=== PATIENT | male | born 1985 | race Caucasian/White ===

== ENCOUNTER 2021-02-07 22:35 | Emergency (ER) | payer OTHER, SELFPAY ==
--- NOTE | ~2021-02-07 | XR_ITS ---
XR foot LT min 3V DATE: 02/07/2021 22:56 INDICATION: Patient fell on the whole wall running. Pain in first metatarsal area TECHNIQUE: 4 views COMPARISON: None FINDINGS: No fracture or dislocation, periosteal reaction or bone destruction. Joint spaces are prese rved. No erosive change. IMPRESSION: Negative Reviewed, dictated and finalized at location A. IMPRESSION: Negative
[2021-02-07 22:37] VITALS: BP 159/97; PULSE 102; RESP 17; TEMP 36.2; O2SAT 97
== END 2021-02-08 00:34 | disposition left against medical advice (07) ==
PROVIDERS: Emergency Provider Emergency Medicine
DX: S99.922A Unspecified injury of left foot, initial encounter (principal)
CPT/HCPCS: 73630; 99199

== ENCOUNTER 2025-05-17 11:37 | Outpatient (CLI) | payer OTHER, SELFPAY ==
--- OUTSIDE RECORDS SUMMARY | 2025-05-17 11:41 | XMS_ITS | Clinical Summary ---
Author Organization [facility] Address [address] [place] [address] Phone Care Team Providers Care Boating Safety Officer Name Role Phone Fabien Miguel MD Primary Care Provider + [phone] Allergies Active Allergy Reactions Criticality Noted Date Comments Yxydkmb-Wilxlp-Tvcxb Pertussis Unknown 03/30 Medications methylPREDNISol one (MEDROL DOSPACK) 4 MG Tablet Therapy Pack See product package insert for dosing schedule 21 Tab 0 03/30/2016 Active naproxen (NAPROSYN) 500 MG Tablet Take 1 Tab by mouth 2 times daily as needed for Pain. 20 Tab 0 03/30/2016 Active Social History Tobacco Use Types Packs/Day Years Used Date Smoking Tobacco: Never Alcohol Use Standard Drinks/Week Comments No 0 (1 standard drink = 0.6 oz pur e alcohol) Sex and Gender Information Value Date Recorded Sex Assigned at Not on file Legal Sex Male 11:15 PM CDT Gender Identity Not on file Sexual Orientation Not on file Last Filed Vital Signs Vital Sign Reading Time Taken Comments Blood Pressure 156/106 03/30/2016 8:04 PM CDT Pulse - - Temperature 35.9 C (96.6 F) 03/30/2016 8:04 PM CDT Respiratory Rate 16 03/30/2016 8:04 PM CDT Oxygen Saturation 97% 03/30/2016 8:04 PM CDT Inhaled Oxygen Concentration - - Weight 102.1 kg (225 lb) 03/30/2016 8:04 PM CDT Height 185.4 cm (6' 1) 03/30/2016 8:04 PM CDT Body Mass Index 29.69 03/30/2016 8:04 PM CDT Plan of Treatment Health Maintenance Due Date Last Done Comments Hepatitis C Virus (HCV) Screening 1987 TdaP Immunization 1987 Hepatitis B Immunization (1 of 3 - 19+ 3-dose series) 10/09/2006 Human Papillomavirus (HPV) Immunization (1 - 3-dose SCDM series) 10/09/2014 Influenza Immunization (#1) 2025 SARS-COV-2 Immunization ( - season) 2025 Respiratory Syncytial Virus (RSV) Immunization (Adult) (1 - 1-dose 75+ series) 10/09/2062 Meningococcal Immunization (ACWY) Aged Out No longer eligible based on patient's age to complete this topic Pneumococcal Immunization Combined Aged Out No longer eligible based on patient's age to complete this topic Rotavirus Immunization Aged Out No lo nger eligible based on patient's age to complete this topic Care Teams Boating Safety Officer Relationship Specialty Start Date End Date Fabien Miguel MD [address] [place] [id number] PCP - General Internal Medicine 03/30/16
--- OUTSIDE RECORDS SUMMARY | 2025-05-17 11:41 | XMS_ITS | Clinical Summary ---
Author Organization [facility] Address [address] [place] [address] Care Team Providers Care Maintenance Supervisor Mechanical Name Role Phone Leonela Cain MD Primary Care Provider [phone] Source Comments [facility],non-owned Affiliates and Associated Physician Practices is amultiple site organization consisting of ambulatory clinics and hospital sitesin [place], [place], [place] and [place]. This disclosure is being madepursuant to the Care Everywhere program and may not contain all information available regarding this patient. Last updated 18.[facility] Social History Tobacco Use Types Packs/Day Years Used Date Smoking Tobacco: Never Assessed Sex and Gender Information Value Date Recorded Sex Assigned at Not on file Legal Sex Male 5:41 AM NEURODIAGNOSTIC TECH Gender Identity Not on file Sexual Orientation Not on file Plan of Treatment Health Maintenance Due Date Last Done Comments HIV SCREENING 10/09/2002 HEPATITIS C SCREENING 10/05/2005 DTAP/TDAP/TD VACCINES (1 - Tdap) 10/09/2006 HEPATITIS B VACCINE (1 of 3 - 19+ 3-dose series) 10/09/2006 HPV VACCINE (1 - 3-dose SCDM series) 10/09/2014 DEPRESSION SCREENING 06/13/2024 COVID-19 VACCINE ( - 2024-2 6 season) 2025 INFLUENZA VACCINE (#1) 2025 ZOSTER VACCINE (1 of 2) 10/09/2037 HIB VACCINE Aged Out No longer eligi ble based on patient's age to complete this topic MENINGOCOCCAL (Group B) VACC INE SHARED DECISION-MAKING Aged Out No longer eligibl e based on patient's age to complete this topic MENINGOCOCCAL GROUPS A/C/Y/W VACCINE Aged Out No longer eligible b ased on patient's age to complete this topic PNEUMOCOCCAL VACCINE Aged Out No long er eligible based on patient's age to complete this topic Insurance Care Teams Maintenance Supervisor Mechanical Relationship Specialty Start Date End Date Leonela Cain MD [address] [place] [address] PCP - General 04/17/19
--- OUTSIDE RECORDS SUMMARY | 2025-05-17 11:41 | XMS_ITS | Clinical Summary ---
Author Organization [facility] Address [address] [place] [address] Phone Care Team Providers Care Skein Tier Name Role Phone Alicja Mcknight MD Primary Care Provider Scarlett Lehman NP Unavailable [phone] Allergies Active Allergy Reactions Criticality Noted Date Comments Aloe Rash Medium 03/02/2022 Diphtheria,Pertussis(Acel l),Tetanus Pedi Vaccine Unknown 03/30/2016 Has had tetanus as an adult with no reaction. Possibly reacted to the pertussis vaccine as a child as reported to him. 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) Take 1 tablet (50 mg total) by mouth every 8 (eight) hours as needed for pain for up to 28 doses 28 tablet 06/24/2022 Active meloxicam (MOBIC) 15 mg tabletIndication s:Osteoarthritis Take 1 tablet (15 mg total) by mouth daily 30 tablet 11 07/27/2022 Active baclofen (LIORESAL) 20 mg tabletIndication s:Muscle Spasticity of Spinal Origin Take 1 tablet (20 mg total) by mouth 3 (three) times a day 90 tablet 2 08/10/2022 Active Active Problems Problem Noted Date Diagnosed Date Herniated nucleus pulposus, L5-S1 06/24/2022 Kidney stone 09/16/2021 Immunizations Immunization Administration Dates Next Due DT 10/06/1992, 2,06/20/1989,02/18/1988,0 1987 Hep B, Adolescent or Pediatric 09/17/1998,1997,03/10/1998 MMR 10/06/1992,03/02/1989 OPV 10/06/1992,06/20/1989,02/18/1988 ,1987 Tetanus Toxoid, Unspecified 06/13/2011 Surgical History Surgery Date Site/Laterality Comments WISDOM TOOTH EXTRACTION reports 2 were removed FL UPPER GI AIR CONTRAST W KUB 05/20/2022 Bilateral Medical History Medical History Date Comments Lumbar herniated disc Anxiety Kidney stone Family History Medical History Relation Name Comments Chronic Pain Father Hypertension Father Stroke Maternal Grandfather Ovarian cancer Mother Seizures Mother Hypertension Paternal Grandfather Stroke Paternal Grandmother Colon cancer Neg Hx Prostate cancer Neg Hx Testicular cancer Neg Hx Relation Name Status Comments Father Maternal Grandfather Mother Paternal Grandfather Paternal Grandmother Social History Tobacco Use Types Packs/Day Years Used Date Smoking Tobacco: Every Day Cigarettes Vaping Smokeless Tobacco: Never Tobacco Cessation:Ready to Q uit: Not Asked; Counseling Given: Not Answered AUDIT-C Answer Date Recorded Q1: How often do you have a drink containing alc ohol? Never 06/24/2022 Average Number of Drinks Not on file 023 Frequency of Binge Drinking Not on file 06/13 PHQ-2 Answer Date Recorded PHQ-2 Total Score (If total score is 3 or more points, staff should administer the PHQ-9) 2 03/02/2022 Hunger Vital Sign Answer Date Recorded Within the past 12 months, y ou worried that your food would run out before you got the money to buy more. Never true 07/27/19 23 Within the past 12 months, t he food you bought just didn't last and you didn't have money to get more. Never true 07/27/2022 Personal Safety Answer Date Recorded Getting School Help Needed Not on file 06/10 Sex and Gender Information Value Date Recorded Sex Assigned at Not on file Legal Sex Male 9:40 AM GYN Gender Identity Not on file Sexual Orientation Not on file Last Filed Vital Signs Vital Sign Reading Time Taken Comments Blood Pressure 132/95 07/27/2022 10:24 AM GYN Pulse 78 07/27/2022 10:24 AM GYN Temperature 37.1 C (98.8 F) 07/27/2022 10:24 AM GYN Respiratory Rate 18 07/27/2022 10:24 AM GYN Oxygen Saturation - - Inhaled Oxygen Concentration - - Weight 114.1 kg (251 lb 8 oz) 07/27/2022 10:24 A M GYN Height 185.4 cm (6' 1) 07/27/2022 10:24 AM GYN Body Mass Index 33.18 07/27/2022 10:24 AM GYN Plan of Treatment Health Maintenance Due Date Last Done Comments Hepatitis C Screening 1987 DTaP/Tdap/Td Vaccine (6 - Tdap) 10/09/1998 10/06/1992, 02/04/1992, 06/20/1989, Additional history exists Varicella Vaccines (1 of 2 - 13+ 2-dose series) 10/09/2000 Regular Well Visit/Exam 18-64 10/09/2005 Pneumococcal vaccine <65 (1 of 2 - PCV) 10/09/2006 HPV Vaccines (1 - 3-dose SCD M series) 10/09/2014 Depression Screening 03/02/2023 03/02/2022 Influenza Vaccine (#1) 2025 Hepatitis B Screening Completed 09/17/1998 , 04/14/1998, 03/10/1998 Insurance [facility] [address] [place] [address] [facility] Care Teams Skein Tier Relationship Specialty Start Date End Date Alicja Mcknight MD PCP - General Family Practice 03/02/22 Scarlett Lehman NP Nurse Practitioner Orthopedic Surgery 04/13/22
[2025-05-17 12:44] LABS: Alanine Aminotransferase 27 U/L (6-50); Albumin Level 4.6 g/dL (3.5-5.1); Alkaline Phosphatase 74 U/L (38-126); Anion Gap 5 mmol/L (4-12); Aspartate Amino Transferase 35 U/L (17-59); Bilirubin,Total 0.4 mg/dL (0.2-1.3); Blood Urea Nitrogen 10 mg/dL (9-20); Calcium 9.5 mg/dL (8.4-10.2); Carbon Dioxide 29 mmol/L (22-30); Chloride 105 mmol/L (98-107); Cholesterol 205 mg/dL (0-200); Estimated Glomerular Filt Rate > 60; Glucose 98 mg/dL (65-110); HDL Direct 34 mg/dL; Potassium 3.6 mmol/L (3.4-5.0); Sodium 139 mmol/L (137-145); Total Protein 8.5 g/dL (6.3-8.2); Triglycerides 167 mg/dL (<150)
[2025-05-17 13:20] LABS: Thyroid Stimulating Hormone 2.600 uIU/mL (0.465-4.680)
[2025-05-21 10:09] LABS: ANA by IFA Rfx Titer/Pattern Negative (.)
== END 2025-05-17 11:38 | disposition home or self-care (01) ==
LOC: ANHLAB 11:39
PROVIDERS: PCP Emergency Medicine; Visit Provider Emergency Medicine
DX: E78.5 Hyperlipidemia, unspecified (principal); E55.9 Vitamin D deficiency, unspecified; M06.9 Rheumatoid arthritis, unspecified; R53.83 Other fatigue; R70.0 Elevated erythrocyte sedimentation rate
CPT/HCPCS: 36415; 80053; 80061; 82306; 84443; 85652; 86038; 86430